=== PATIENT | female | born 1950 | race Caucasian/White ===

== ENCOUNTER 2016-03-11 16:05 | Inpatient (IN) | payer BC ==
[2016-03-13 09:44] LABS: BUN/Creatinine Ratio 24.8 (8-20); Calcium 9.1 mg/dL (8.6-10.3); EGFR Non-African American 55.2 (>60); Magnesium 1.9 mg/dL (1.9-2.7); Potassium 4.8 mmol/L (3.5-5.0)
[2016-03-13] MEDS ORDERED: Acyclovir* 400 MG TAB PO PRN (11:11)
[2016-03-13] MEDS: Dofetilide CAP* 250 MCG PO SCH ×2 (11:49→22:41)
[2016-03-13] MEDS: Saline FLUSH-PERIPHERAL* 10 ML SYRINGE PERIPH SCH ×2 (11:52→22:43)
[2016-03-13] MEDS: Warfarin TAB(*) 2.5 MG PO SCH (17:07)
[2016-03-13] MEDS: POTASSIUM CITRATE 10 MEQ PO SCH (22:42)
[2016-03-14] MEDS: Saline FLUSH-PERIPHERAL* 10 ML SYRINGE PERIPH SCH ×3 (04:50→21:04)
[2016-03-14] MEDS: POTASSIUM CITRATE 10 MEQ PO SCH ×2 (09:34→21:03)
[2016-03-14] MEDS: Dofetilide CAP* 250 MCG PO SCH ×2 (09:34→21:03)
[2016-03-14 10:06] LABS: BUN/Creatinine Ratio 20.9 (8-20); Calcium 9.2 mg/dL (8.6-10.3); EGFR African American 64.3 (>60); Magnesium 1.9 mg/dL (1.9-2.7); Potassium 4.2 mmol/L (3.5-5.0)
[2016-03-14] MEDS ORDERED: Warfarin TAB(*) 5 MG PO SCH (17:00)
[2016-03-15] MEDS: Saline FLUSH-PERIPHERAL* 10 ML SYRINGE PERIPH SCH ×2 (05:55→12:16)
[2016-03-15 06:20] LABS: BUN/Creatinine Ratio 21.9 (8-20); Calcium 8.8 mg/dL (8.6-10.3); EGFR African American 75.3 (>60); EGFR Non-African American 58.5 (>60); Magnesium 1.8 mg/dL (1.9-2.7); Potassium 4.2 mmol/L (3.5-5.0)
--- NOTE | 2016-03-15 08:35 | PN ---
Subjective Date of Service: 03/15/16 - cc: palpitations/afib and dizziness Interval History: No new c/o, persistent palpitations. No recurrent dizziness. Medications Active Medications: Acyclovir (Zovirax Tab*) 400 mg PO DAILY PRN PRN Reason: cold sores Dofetilide (Tikosyn Cap*) 250 mcg PO BID [facility] Last Admin: 03/14/16 21:03 Dose: 250 mcg Potassium Citrate (Urocit-K 10 (Nf)) 20 meq PO BID [facility] Last Admin: 03/14/16 21:03 Dose: 20 meq Sodium Chloride ( Peripheral Saline Flush*) 10 ml PERIPH Q8H [facility] Last Admin: 03/15/16 05:55 Dose: 10 ml Warfarin Sodium (Coumadin Tab(*)) 2.5 mg PO SuMoWeThFrSa@1700 MEMO PRN Reason: Protocol Last Admin: 03/13/16 17:07 Dose: 2.5 mg Warfarin Sodium (Coumadin Tab(*)) 5 mg PO Tu@1700 [facility] PRN Reason: Protocol Last Admin: 03/14/16 16:18 Dose: 5 mg Objective Vital Signs: Temp Pulse Resp BP Pulse Ox 98.7 F 45 16 128/60 99 03/15/16 07:27 03/15/16 07:27 03/15/16 07:27 03/15/16 07:27 03/15/16 07:27 Oxygen Devices in Use Now: None Appearance: fit appearing woman, no acute distress. Eyes: No Scleral Icterus, PERRLA Ears/Nose/Mouth/Throat: Clear Oropharnyx, Mucous Membranes Moist Neck: Trachea Midline, No Thyroid Enlargement, Masses Respiratory: Clear to Auscultation Cardiovascular: RRR - soft SM apex Abdominal: NL Sounds; No Tenderness; No Distention, No Hepatosplenomegaly Extremities: No Edema Skin: No Rash or Ulcers Neurological: Alert and Oriented x 3, NL Muscle Strength and Tone Lines/Tubes/Other Access: Clean, Dry and Intact Peripheral IV Laboratory Results: 03/15/16 05:54 INR (Anticoag Therapy) 2.63 (0.89-1.11) H 03/13/16 09:15 Diagnostic Imaging: Monitor: SR, brief afib, occ PVC's. ECG: QTc 445 +/-. EKG Data: Sinus vahe, PCC's, rare SVT, RBBB. QTc 440's. Assessment/Plan 65 you female with paroxysmal atrial fibrillation and sick sinus syndrome with symptomatic bradycardia on Sotalol. Day 3 Tikosyn loading, doing well. Points of Discussion: Paroxysmal afib: D/c on Tikosyn and usual meds including coumodin. SSS: Pacemaker discussed, but resolution of pauses off sotalol, improved at this time.] Pt to continue to wear EM on discharge.
[2016-03-15] MEDS: POTASSIUM CITRATE 10 MEQ PO SCH (09:04)
[2016-03-15] MEDS: Dofetilide CAP* 250 MCG PO SCH ×2 (09:04→20:34)
[2016-03-15 17:14] VITALS: BP 116/68
[2016-03-15] MEDS: Warfarin TAB(*) 2.5 MG PO SCH (17:51)
--- NOTE | 2016-03-16 18:02 | DS ---
CC: Dr. Leon Iqbal DISCHARGE SUMMARY: DATE OF ADMISSION: DATE OF DISCHARGE: 03/15/16 HISTORY OF PRESENT ILLNESS AND HOSPITAL COURSE: Alicia Salazar is a 65-year-old woman with longstanding paroxysmal atrial fibrillation, breaking through sotalol , and she has had symptomatic bradycardia on low-dose sotalol. The patient stopped her sotalol as an outpatient and was admitted electively, 03/13/16, for Tikosyn loading. PAST MEDICAL HISTORY: Paroxysmal atrial fibrillation; mitral valve prolapse, status post mitral valve repair, 2003; paroxysmal atrial flutter; coagulopathy with factor V Leiden and protein S deficiency; congenital nonrotation of the mid gut; Sjogren's renal tubular acidosis; hypothyroid disease; Raynaud's disease; history of postpericardiotomy syndrome, 2003, post repair; renal stones; normal coronary arteries on cath 2003. PAST SURGICAL HISTORY: Includes mitral valve repair, 2003; lithotripsy; section; adhesion surgery for lysis adhesions, 2001; tonsillectomy and adenoidectomy; hip replacement, 2014; cardiac procedures; atrial flutter ablation, November 2014. HOSPITAL COURSE: The patient was admitted and based on her creatinine clearance , Tikosyn 250 mcg b.i.d. was initiated. She had some brief episodes of atrial fibrillation during the admission, and she had some PVCs but no episodes of polymorphic ventricular tachycardia or sustained atrial dysrhythmias. The patient's ECG on admission showed an ectopic regular atrial rhythm at 43 beats a minute with a right bundle branch block, inverted T waves in V1 through V4, flattened T waves in the lateral leads. On admission, her corrected QT interval was 439 milliseconds. The patient's 12-lead ECG today at 7:22 in the morning after 4 doses of Tikosyn showed regular bradycardia, ectopic atrial rhythm with a short MD interval, possible junctional bradycardia at 44 beats a minute with a right bundle branch block, and a corrected QT interval of 445 milliseconds. Her corrected QT interval on the monitor after her fifth dose of Tikosyn was 414 milliseconds. Shortly after the first dose of Tikosyn, the patient was transiently dizzy and felt spacey. There is no evidence of bradycardia or hypotension. She elected to hydrate herself and this has not recurred with any subsequent doses of Tikosyn and she is ambulating well without symptoms. LABORATORY DATA: INR today 2.18, sodium 139, potassium 4.2, chloride 109, bicarb 25, BUN 21, creatinine 0.96, glucose 90, magnesium 1.8. PHYSICAL EXAMINATION: On the evening of discharge, the patient's blood pressure is 116/68, pulse is ranging in the 40s to 60s with her ectopic atrial rhythm, oxygen saturation 98% on room air, and she is afebrile. She is 5 feet 3 inches, weighs 134 pounds with a BMI of 24. General Appearance: Middle-aged , older woman, appears comfortable in no acute distress, at her usual baseline. Psychologically, calm, cooperative, pleasant. Neurologically, awake, alert, oriented to person, place, and time. Cranial nerves II through XII intact grossly. Normal sensation and motor function in the upper and lower extremities. Normal gait. Skin is warm and dry. No cyanosis or rashes. HEENT : Mucous membranes moist. Neck without increased JVP. Good carotid pulses. No audible bruits. Lungs are clear with good effort. No wheezes, rales, or rhonchi. Coronary: S1, S2. Regular. Trace systolic murmur heard at the apex. Abdomen: Soft and nontender. No epigastric discomfort. Extremities are free of edema and warm. ASSESSMENT AND PLAN: In summary, Alicia Salazar is a 65-year-old woman with paroxysmal atrial fibrillation, flutter, who was breaking through her sotalol. She additionally was having symptomatic bradycardia with pauses up to 4 seconds. She is now off sotalol, loaded with Tikosyn. No evidence of pauses during her hospitalization with improvement in her paroxysmal atrial fibrillation and no evidence of induced ventricular dysrhythmias (history of PVCs) without Tikosyn as well. DISCHARGE MEDICATIONS: She will be discharged on: 1. Tikosyn 250 mcg p.o. b.i.d. 2. Potassium citrate 20 mEq b.i.d. 3. Coumadin. 4. Acyclovir 400 mg a day. She will resume using the event monitor that have been ordered preadmission and she is going to follow up in our office within 1 month. The patient will leave with Tikosyn 10 pills dispensed and a prescription has been e-prescribed to her regular pharmacy. Regarding the patient's sick sinus syndrome, discussions have been had in the office and during admission regarding elective pacemaker implantation, she is understanding and considering this. She knows she has the option of undergoing this here and/or following up with her machine set up operator as well. [id number]/[facility] #: [id number] GERARDO
== END 2016-03-15 20:35 | disposition home or self-care (01) | DRG 201 ==
LOC: MEDTELE 03-13 08:48
PROVIDERS: ADMIT Specialist; ATTEND Specialist
DX: I48.0 Paroxysmal atrial fibrillation (principal); D68.2 Hereditary deficiency of other clotting factors; D68.59 Other primary thrombophilia; I49.5 Sick sinus syndrome; M35.04 Sjogren syndrome with tubulo-interstitial nephropathy; E03.9 Hypothyroidism, unspecified; I73.00 Raynaud's syndrome without gangrene; I48.4 Atypical atrial flutter; I34.1 Nonrheumatic mitral (valve) prolapse; I34.0 Nonrheumatic mitral (valve) insufficiency; Z96.649 Presence of unspecified artificial hip joint; Z79.899 Other long term (current) drug therapy; Z79.01 Long term (current) use of anticoagulants; Z82.49 Family history of ischemic heart disease and other diseases of the circulatory system; Z80.0 Family history of malignant neoplasm of digestive organs; Z80.52 Family history of malignant neoplasm of bladder
CPT/HCPCS: 36415; 80048; 83735; 85610; 93005; A9270-GY

== ENCOUNTER 2016-06-08 08:19 | Observation (INO) | payer BC ==
[2016-06-08] MEDS ORDERED: Diazepam TAB(*) 5 MG ONE (08:58)
[2016-06-08 09:27] LABS: Hematocrit 41 % (35-47); Hemoglobin 13.2 g/dl (12.0-16.0); Mean Corpuscular HGB Conc 32 g/dl (31-36); Mean Corpuscular Hemoglobin 29 pg (27-31); Mean Corpuscular Volume 89 fL (80-97); Mean Platelet Volume 9 um3 (7.4-10.4); Red Blood Count 4.56 10^6/ul (4.0-5.4); Red Cell Distribution Width 14 % (10.5-15); White Blood Count 3.6 10^3/ul (3.5-10.8)
[2016-06-08] MEDS ORDERED: Midazolam* 1 MG/ML 5 ML VIAL (5 MG) ONE ×2 (09:33→10:13)
[2016-06-08] MEDS ORDERED: fentaNYL* 50 MCG/ML 2 ML VIAL (100 MCG VIAL) ONE (09:33)
[2016-06-08] MEDS ORDERED: Lidocaine 1% INJ* 10 MG/ML 30 ML SDV ONE ×2 (09:34→10:19)
[2016-06-08] MEDS ORDERED: Iohexol 300 (CONTRAST) 10 ML SDV ONE ×2 (09:34→10:31)
[2016-06-08 09:43] LABS: Albumin 3.7 g/dL (3.2-5.2); BUN/Creatinine Ratio 22.2 (8-20); Calcium 9.3 mg/dL (8.6-10.3); EGFR African American 65.7 (>60); EGFR Non-African American 51.1 (>60); Globulin 2.7 g/dL (2-4); Potassium 4.6 mmol/L (3.5-5.0); Total Bilirubin 0.5 mg/dL (0.2-1.0); Total Protein 6.4 g/dL (6.4-8.9)
[2016-06-08] MEDS ORDERED: Clindamycin 900 MG IVPREMIX(* 900 MG/50 ML SDV IV ONE (10:00)
[2016-06-08] MEDS ORDERED: DOPAMINE IV ONE (10:44)
[2016-06-08] MEDS ORDERED: IVPREM IV ONE (10:44)
[2016-06-08] MEDS ORDERED: Acetaminophen TAB* 325 MG PO PRN (11:53)
[2016-06-08] MEDS ORDERED: Acyclovir TAB* 400 MG PO PRN (11:53)
--- NOTE | 2016-06-08 14:16 | RAD ---
HISTORY: Atypical atrial flutter, status post pacemaker placement COMPARISONS: October 28, 2011 VIEWS:1: Single frontal portable view of the chest at 12:45 PM FINDINGS: LINES AND TUBES: A dual-lead pacemaker is noted. CARDIOMEDIASTINAL SILHOUETTE: The cardiomediastinal silhouette is normal for portable technique. PLEURA: The costophrenic angles are sharp. No pleural abnormalities are noted. LUNG PARENCHYMA: The lungs are clear. ABDOMEN: The upper abdomen is clear. There is no subphrenic gas. BONES AND SOFT TISSUES: The patient is status post median sternotomy. IMPRESSION: NO ACTIVE CARDIOPULMONARY DISEASE.
[2016-06-08] MEDS: Clindamycin 300 MG IVPREMIX(* 300 MG/50 ML SDV IV SCH ×2 (17:14→22:23)
[2016-06-08] MEDS: oxyCODONE/Acetamin 5/325 MG* TAB PO PRN (21:29)
[2016-06-08] MEDS: POTASSIUM CITRATE 10 MEQ PO SCH (21:30)
[2016-06-08] MEDS: Metoprolol Tartrate TAB* 25 MG PO SCH (22:22)
[2016-06-09] MEDS ORDERED: Acetaminophen TAB* 325 MG PO PRN (01:42)
[2016-06-09] MEDS: oxyCODONE/Acetamin 5/325 MG* TAB PO PRN (03:27)
[2016-06-09] MEDS: Clindamycin 300 MG IVPREMIX(* 300 MG/50 ML SDV IV SCH ×2 (04:27→09:14)
--- NOTE | 2016-06-09 04:52 | OP ---
DATE OF OPERATION: 06/08/16 - ROOM #452 DATE OF : 52 SURGEON: Cecilia Rutledge MD ANESTHESIA: MAC. PRE-OP DIAGNOSIS: Sick sinus syndrome with paroxysmal atrial fibrillation/ flutter. POST-OP DIAGNOSIS: Sick sinus syndrome with paroxysmal atrial fibrillation/ flutter. OPERATIVE PROCEDURE: Pacemaker implantation. ESTIMATED BLOOD LOSS: Less than 5 cc. COMPLICATIONS: None. DESCRIPTION OF PROCEDURE: The indications, risks, and benefits have been discussed in depth with the patient in the office and additional questions were answered in the presence of her this morning. The left subclavian fossa was prepped and draped in the usual sterile fashion. Time-out procedure was called. Following this, the patient received 10 cc of radiopaque dye in the left upper extremity. The left axillary and left subclavian vein was outlined. Following this, the patient received 28 cc of 1% lidocaine and in addition 5 mg of Versed and 50 mcg of fentanyl throughout the procedure. The patient was awake throughout the procedure, additional medication was not provided as her blood pressures were running around 100 systolic with normal saline bolus of 500 cc. Following local anesthesia, using a 10 blade knife, a 2.5-cm incision was made in the left subclavian fossa. This was extended to the pectoralis muscle using Bovie and blunt dissection. Additional lidocaine was infused inferiorly and medially and using blunt dissection, a small pocket was fashioned. Using a modified Seldinger technique, the left subclavian vein was cannulated, it was difficult to find the vein and an additional 10 cc of 1% lidocaine was infused. Following this, access was easily obtained. This procedure was repeated with a second stick and guidewire. Following this, using an introducer technique, the right ventricular lead was guided into the right ventricular apex and actively fixed in place. Pacing and sensing thresholds were inadequate and the lead was repositioned. Following this, using the second guidewire and an introducer in fluoroscopic guidance, the atrial lead was guided in the right atrial appendage. It was actively fixed in place. Pacing and sensing thresholds were found to be good. The leads were then sutured to the pectoralis muscle using 0 silk suture, following careful positioning. The pocket was copiously irrigated. Following this, the leads were attached to the device and the device was placed in the pocket and the incision was closed using 2 layers of resorbable suture, 2-0 followed by 4-0 followed by ced. FINDINGS: The entire system is an MRI compatible system. The device is a [employer] A2DR01, serial number [id number]. The atrial lead is a Medtronic model 5076-45, serial number [id number] with P waves sensed at 1.6 millivolts, atrial lead impedance of 511 ohms and atrial pacing threshold of 0.7 volts at 0.5 milliseconds. The ventricular lead is a Medtronic model 5076-52, serial number [id number] with R waves sensed at 5.8 millivolts, a ventricular lead impedance of 658 ohms, and a ventricular pacing threshold of 1 volt at 0.5 milliseconds. The patient developed SVT intermittently during the procedure. At the time of the transfer to the floor, she was in atrial paced rhythm with [place] QRS. Blood pressures were soft during the procedure, and she had transient scapular pain that responded to repositioning. CC: Dr. Leon Iqbal* [id number]/[facility] #: [id number] GERARDO
[2016-06-09 05:16] LABS: Albumin 3.2 g/dL (3.2-5.2); BUN/Creatinine Ratio 21.5 (8-20); Calcium 8.6 mg/dL (8.6-10.3); EGFR African American 66.4 (>60); EGFR Non-African American 51.6 (>60); Globulin 2.3 g/dL (2-4); Magnesium 1.9 mg/dL (1.9-2.7); Potassium 4.5 mmol/L (3.5-5.0); Total Bilirubin 0.4 mg/dL (0.2-1.0); Total Protein 5.5 g/dL (6.4-8.9)
[2016-06-09 06:47] LABS: Hematocrit 36 % (35-47); Hemoglobin 11.8 g/dl (12.0-16.0); Mean Corpuscular HGB Conc 33 g/dl (31-36); Mean Corpuscular Hemoglobin 29 pg (27-31); Mean Corpuscular Volume 89 fL (80-97); Mean Platelet Volume 9 um3 (7.4-10.4); Red Blood Count 4.04 10^6/ul (4.0-5.4); Red Cell Distribution Width 14 % (10.5-15); White Blood Count 3.8 10^3/ul (3.5-10.8)
[2016-06-09 08:13] VITALS: BP 108/69
[2016-06-09 08:31] LABS: BUN/Creatinine Ratio 22.9 (8-20); Calcium 8.5 mg/dL (8.6-10.3); EGFR African American 67.9 (>60); EGFR Non-African American 52.8 (>60); Potassium 4.7 mmol/L (3.5-5.0)
--- NOTE | 2016-06-09 08:32 | RAD ---
INDICATION: Device implant COMPARISON: June 08, 2016 TECHNIQUE: PA and lateral dual-energy views were obtained. FINDINGS: Bones/Soft Tissues: There are no acute bony findings. There is sternotomy. There is recent left-sided cardiac pacemaker placement. The generator and wires appear intact. Cardiomediastinal: The cardiomediastinal silhouette is normal. There is no vascular congestion. Lungs: There are no infiltrates. There is minimal left basilar airspace disease, likely atelectasis. There is no pneumothorax. Pleura: There are no pleural effusions. Other: None IMPRESSION: LEFT SIDED CARDIAC PACEMAKER. LUNGS CLEAR.
[2016-06-09] MEDS: Metoprolol Tartrate TAB* 25 MG PO SCH (09:14)
[2016-06-09] MEDS: POTASSIUM CITRATE 10 MEQ PO SCH (09:15)
[2016-06-09 11:48] LABS: Erythrocyte Sed Rate 15 mm/Hr (0-30)
[2016-06-09] MEDS ORDERED: Warfarin TAB(*) 2.5 MG PO SCH (17:00)
--- NOTE | 2016-06-12 09:41 | DS ---
CC: Dr. Iqbal DISCHARGE SUMMARY: DATE OF ADMISSION: 06/08/16 DATE OF DISCHARGE: 06/09/16 HISTORY OF PRESENT ILLNESS AND HOSPITAL COURSE: Alicia Salazar is a 65-year-old woman with a history of mitral valve repair distantly, history of paroxysmal atrial fibrillation, and sick sinus syndrom e. Due to inability to adequately control her AFib/flutter due to symptomatic bradycardia, the azeem ent was brought in for elective dual-chamber pacemaker implantation. She underwent implantation of an MRI compatible dual-chamber Medtronic device, June 08. She had some pleuritic chest pain following the procedure. There was no evidence of pneumothorax or any oth er abnormalities on chest x-ray, and she said this was similar to sensation she had back with her mi tral valve surgery and she thinks it is musculoskeletal. On the day of discharge, the patient was feeling better. She very much wanted to go home. She derrick ed orthopnea, PND, or dyspnea. On the monitor overnight, she had had some transient tachycardia. The patient has a past medical history of: 1. Mitral valve prolapse, status post mitral valve repair, 2013. 2. A history of paroxysmal atrial fibrillation. 3. Paroxysmal atrial flutter and she underwent flutter ablation, 2014 (Dr. Velazquez). 4. History of coagulopathy, factor V Leiden and protein S. 5. Congenital malrotation of the mid gut. 6. Sjogren syndrome. 7. Renal tubular acidosis. 8. Hypothyroid disease. 9. Raynaud's. 10. Post-pericardiectomy syndrome following mitral valve repair. PAST SURGICAL HISTORY: 1. Mitral valve repair, 2013, #32 Cara ring, [facility]. 2. Lithotripsy x2. 3. section. 4. Lysis of adhesions, 2001. 5. Tonsillectomy. 6. Adenoidectomy. 7. Hip replacement, right, 2015. EXAM ON THE DAY OF DISCHARGE: She is 5 feet 4 inches, weighs 150 pounds with a BMI of 25.7, blood p ressure 108/69, pulse was 60 and regular, atrial paced, temperature 98.3, and respiratory rate was 1 6. General Appearance: Fit-appearing older woman in no acute distress. Psychologically, calm, telehealth coordinator perative, pleasant. Neurologically, awake, alert, and oriented to person, place, and time. Cranial nerves II through XII intact. Grossly normal sensory and motor function in the upper and lower extr emities. Normal gait. Skin: Warm and dry. No cyanosis or rashes. Incision in the left subclavia n fossa had some minimal dotting of blood, but no hematoma or ecchymosis and no evidence of infectio n. HEENT: Pupils were equal and round. Mucous membranes moist. Neck: Without increased JVP. Br eath sounds clear with good effort in all lung [place], symmetrical. Coronary: S1, S2 regular. No rubs. Midline sternotomy scar well healed and old. Abdomen: Soft and nontender. No hepatosplenom egaly. Lower extremities are free of edema. LABS ON ADMISSION: White count 3.6, hemoglobin 13.2, platelets 124. On the day of discharge, white count 3.8, hemoglobin 11.8, hematocrit 36, platelets 106, and sed rate 15. INR 0.98. Sodium 139, potassium 4.7, chloride 108, BUN 24, creatinine 1.05, calcium 8.5, magnesium 1.9. Chest x-ray on June 08 and June 09 showed good lead placement, no pneumothorax. Pacemaker int errogation done, 06/09/16, confirmed she has a Medtronic MRI compatible device. Overnight, she atri ally paced 95% of the time, ventricularly paced 0.3% of the time. Atrial lead impedance 361 ohms wi th P waves sensed at 1.5 millivolts and an atrial pacing threshold of 0.5 volts at 0.4 milliseconds. Ventricular lead impedance was 532 ohms with R wave sensed at 7 millivolts and a ventricular pacin g threshold of 0.5 volts at 0.4 milliseconds. She had had no episodes of sustained atrial fibrillati on or ventricular tachycardia. Programming at discharge was AAIR/DDDR with mode switch detection at 150 beats a minute. In summary, Alicia Salazar is a 65-year-old woman with a history of tachy-vahe syndrome. She was in a junctional or ectopic atrial rhythm prior to pacemaker implantation. She was discharged postop d ay #1 with good function of her pacemaker, good lead placement, and no evidence of pneumothorax, but with some mild pleuritic discomfort. DISCHARGE MEDICATIONS: Her medications at discharge will include: 1. Clindamycin 300 mg t.i.d. for 10 tablets. 2. Tylenol p.r.n. 3. Zovirax 400 mg a day. 4. Potassium 40 mEq a day. 5. On Sunday, once her Tikosyn has worn off, she will start sotalol 80 mg b.i.d. and her Coumadin w ill be resumed at her previous dose. FOLLOWUP: She will follow up in our office next week for a wound check and EKG to evaluate her QT i ntervals on the sotalol. [id number]/[facility] #: [id number]
[2016-06-13] MEDS ORDERED: Warfarin TAB(*) 5 MG PO SCH (17:00)
== END 2016-06-09 10:00 | disposition home or self-care (01) ==
LOC: CHICATH 08:19 → MEDTELE 12:08 → INTOOBSV 12:08
PROVIDERS: ADMIT Specialist; ATTEND Specialist
DX: I49.2 Junctional premature depolarization (principal); I48.0 Paroxysmal atrial fibrillation; D68.51 Activated protein C resistance; Q43.3 Congenital malformations of intestinal fixation; M35.00 Sjogren syndrome, unspecified; E03.9 Hypothyroidism, unspecified; N25.89 Other disorders resulting from impaired renal tubular function; I73.00 Raynaud's syndrome without gangrene; I45.10 Unspecified right bundle-branch block; Z79.01 Long term (current) use of anticoagulants; Z79.899 Other long term (current) drug therapy
CPT/HCPCS: 33208; 36415; 71010; 71020; 80048; 80053; 83735; 85025; 85027; 85610; 85652; 93005; A9270-GY; C1785; C1898; G0378; J1265; J2001; J2250; J3010; Q9967

== ENCOUNTER 2016-10-18 11:11 | Emergency (ER) | payer MEDICARE, BC ==
[2016-10-18] MEDS ORDERED: oxyCODONE/Acetamin 5/325 MG* TAB PO ONE (11:30)
[2016-10-18 12:21] LABS: Hematocrit 40 % (35-47); Hemoglobin 12.9 g/dl (12.0-16.0); Mean Corpuscular HGB Conc 32 g/dl (31-36); Mean Corpuscular Hemoglobin 30 pg (27-31); Mean Corpuscular Volume 91 fL (80-97); Mean Platelet Volume 9 um3 (7.4-10.4); Red Blood Count 4.35 10^6/ul (4.0-5.4); Red Cell Distribution Width 15 % (10.5-15); White Blood Count 5.3 10^3/ul (3.5-10.8)
--- NOTE | 2016-10-18 12:33 | ED ---
Back Pain - HPI Summary HPI Summary: 66F presents with left sided back/rib pain pain after fall today. She states she slipped on the table cloth and fell onto her left midback and landed on a corner. She has abrasion to her back. She is on Coumadin last inr was 1.5 so she took double the warfarin but did not have INR checked due to being out of town. She admits to SOB due to pain. She denies any lightheadedness or tachycardia. She has not taken anything for her pain. She has history of pacemaker. She is able to ambulate. She denies any head injury, LOC, or neck pain. - History of Current Complaint Chief Complaint: EDBackInjuryPain Stated Complaint: FALL/BACK INJURY,SOB-PT ON COUMADIN Time Seen by Provider: 10/18/16 11:24 Hx Last Menstrual Period: tubal ligation 1982 Pain Intensity: 7 - Allergies/Home Medications Allergies/Adverse Reactions: Allergies Allergy/AdvReac Type Severity Reaction Status Date / Time Bupropion [From Wellbutrin] Allergy Unknown LARGE WELTS Verified 05/04/16 10:29 Amiodarone Allergy HYPOTHYROID Verified 05/04/16 10:29 ISM Cephalosporins Allergy LARGE WELTS Verified 05/04/16 10:29 Sulfa Drugs Allergy Rash Verified 05/04/16 10:29 NO LIVE VACCINE Allergy HAS Uncoded 05/04/16 10:29 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 PMH/Surg Hx/FS Hx/Imm Hx Endocrine/Hematology History: Reports: Other Endocrine/Hematological Disorders - Factor V Leiden Mutation Denies: Hx Diabetes, Hx Systemic Lupus Erythematosus - SJOGRENS SYN, Hx Thyroid Disease Cardiovascular History: Reports: Hx Pacemaker/ICD - 3, Hx Valvular Heart Disease - mitral valve Denies: Hx Congestive Heart Failure, Hx Hypertension Respiratory History: Reports: Hx Sleep Apnea - r/o evaluation started 11/2012, Other Respiratory Problems/Disorders - SICARDOSIS Denies: Hx Asthma, Hx Chronic Obstructive Pulmonary Disease (COPD) GI History: Denies: Hx Ulcer History: Reports: Hx Kidney Stones, Hx Renal Disease - RENAL TUBULAR ACIDOSIS Denies: Hx Dialysis Musculoskeletal History: Reports: Other Musculoskeletal History - Sjogren's syndrome Denies: Hx Rheumatoid Arthritis Sensory History: Reports: Hx Contacts or Glasses Denies: Hx Hearing Aid Opthamlomology History: Reports: Hx Contacts or Glasses Neurological History: Denies: Hx Headaches Psychiatric History: Denies: Hx Panic Disorder - Cancer History Hx Chemotherapy: No Hx Radiation Therapy: No - Surgical History Surgery Procedure, Year, and Place: URETERAL/MINA surgery, [place] [facility] [place] PER PT. Exploratory lap, 2001, [facility] [place]. Mitral valve repair, 2003, [facility]WITH [facility] MRISAFETY FOR 1.5 ONLY. Right hip replacement, 2014, [facility] [place]. CARDIAC ABLASION 2016. C SECTIONS. LITHROTRIPSY Hx Anesthesia Reactions: No Infectious Disease History: No Infectious Disease History: Denies: Hx Hepatitis, Hx Human Immunodeficiency Virus (HIV), Traveled Outside the [place] in Last 30 Days - Family History Known Family History: Positive: Hypertension - Social History Alcohol Use: None Substance Use Type: Reports: None Smoking Status (MU): Never Smoked Tobacco Review of Systems Negative: Fever Positive: Other - rib pain Positive: Shortness Of Breath Positive: Myalgia - back pain All Other Systems Reviewed And Are Negative: Yes Physical Exam Triage Information Reviewed: Yes Vital Signs On Initial Exam: Initial Vitals Temp Pulse Resp BP Pulse Ox 98 F 65 20 118/99 100 10/18/16 11:11 10/18/16 11:11 10/18/16 11:11 10/18/16 11:11 10/18/16 11:11 Vital Signs Reviewed: Yes Appearance: Positive: Well-Appearing Skin: Positive: Warm, Dry, Other - abrasion on left side of posterior lower ribs Head/Face: Positive: Normal Head/Face Inspection Eyes: Positive: Normal, Conjunctiva Clear Respiratory/Lung Sounds: Positive: Clear to Auscultation, Breath Sounds Present Cardiovascular: Positive: Normal, RRR Musculoskeletal: Positive: Strength/ROM Intact - no midline tenderness, Other - tender over ribs 10-12 on posterior aspect Psychiatric: Positive: Normal Diagnostics - Vital Signs Vital Signs Temp Pulse Resp BP Pulse Ox 10/18/16 11:47 16 10/18/16 11:24 98.6 F 60 16 105/58 99 10/18/16 11:11 98 F 65 20 118/99 100 - Laboratory Lab Results: Lab Results 10/18/16 10/18/16 Range/Units 12:00 12:00 WBC 5.3 (3.5-10.8) 10^3/ul RBC 4.35 (4.0-5.4) 10^6/ul Hgb 12.9 (12.0-16.0) g/dl Hct 40 (35-47) % MCV 91 (80-97) fL MCH 30 (27-31) pg MCHC 32 (31-36) g/dl RDW 15 (10.5-15) % Plt Count 150 (150-450) 10^3/ul MPV 9 (7.4-10.4) um3 Neut % (Auto) 80.0 (38-83) % Lymph % (Auto) 10.5 L (25-47) % [place] % (Auto) 5.8 (1-9) % Eos % (Auto) 3.1 (0-6) % Baso % (Auto) 0.6 (0-2) % Absolute Neuts (auto) 4.3 (1.5-7.7) 10^3/ul Absolute Lymphs (auto) 0.6 L (1.0-4.8) 10^3/ul Absolute Monos (auto) 0.3 (0-0.8) 10^3/ul Absolute Eos (auto) 0.2 (0-0.6) 10^3/ul Absolute Basos (auto) 0 (0-0.2) 10^3/ul Absolute Nucleated RBC 0 10^3/ul Nucleated RBC % 0 INR (Anticoag Therapy) 2.99 H (0.89-1.11) APTT 50.0 H (26.0-36.3) seconds Result Diagrams: 10/18/16 12:00 Lab Statement: Any lab studies that have been ordered have been reviewed, and results considered in the medical decision making process. - CT chest CT Interpretation: Positive (See Comments) - IMPRESSION: 1. Nondisplaced LEFT 11th rib fracture. Associated small LEFT joint effusion and mild atelectasis. Negative for pneumothorax. 2. LEFT posterior back/flank subcutaneous tissue plane infiltrative edema or hematoma without significant loculated hematoma. 3. Incidental bilateral staghorn renal calculi. CT Interpretation Completed By: Radiologist lumbar CT Interpretation: Positive (See Comments) - IMPRESSION: DEGENERATIVE DISC DISEASE AT MULTIPLE LEVELS. NO FRACTURE IS NOTED. THERE IS PARTIAL LUMBARIZATION OF THE S1 VERTEBRA. AT L4-L5 MODERATE SIZE BROAD-BASED PROTRUSION FLATTENS THE THECAL SAC. BILATERAL STAGHORN CALCULI ARE NOTED IN BOTH KIDNEYS. CT Interpretation Completed By: Radiologist Back Pain Course/Dx - Course Course Of Treatment: 66F presents with left sided back/rib pain pain after fall today. She states she slipped on the table cloth and fell onto her left midback and landed on a corner. She has abrasion to her back. She is on Coumadin last inr was 1.5 so she took double the warfarin but did not have INR checked due to being out of town. She admits to SOB due to pain. She denies any lightheadedness or tachycardia. She has not taken anything for her pain. She has history of pacemaker. She is able to ambulate. She denies any head injury, LOC, or neck pain. abrasion noted to left side of back. tender over abrasion. lungs CTA. inr 2.9. w/h normal. CT shows nondisplaced 11 rib fracture and swelling. explained results and will order for pain medication. told to do deep breathing to prevent pneumonia. patient understands and agrees with plan. - Diagnoses Differential Diagnosis/HQI/PQRI: Positive: Fracture, Other - contusion, pneumothorax Provider Diagnoses: Rib fracture Discharge - Discharge Plan Condition: Good Disposition: HOME Prescriptions: oxyCODONE/Acetamin 5/325 MG* [Percocet 5/325 TAB*] 1 tab PO Q6H PRN #20 tab MDD 4 PRN Reason: Pain Patient Education Materials: Rib Fracture (ED) Referrals: Nemo Cruz MD [Primary Care Provider] - Additional Instructions: Take deep breath throughout the day Place ice on area Take Tylenol for pain every 6 hours, use narcotic for break through pain Follow up with primary care physician within 5 days Return to ED if develop new productive cough, fever, or any new or worsening symptoms
--- NOTE | 2016-10-18 12:43 | RAD ---
INDICATION: Shortness of breath and low back pain post fall. COMPARISON: June 01, 2016 chest radiograph. TECHNIQUE: Multidetector CT images were obtained from the lung apices to the upper abdomen. Evaluation of the viscera is limited without IV contrast. REPORT: Trace LEFT dependent pleural effusion and minimal associated atelectasis. Negative for pneumothorax. Negative for mediastinal hematoma or pneumomediastinum. Median sternotomy wires and RIGHT atrial and RIGHT ventricular level pacemaker leads. Cardiomegaly. Negative for pericardial effusion. Normal diameter thoracic aorta. Negative for thoracic lymphadenopathy. Images through the upper abdomen are remarkable for cholelithiasis with a 2.1 cm weakly calcified stone without additional CT abnormality of the gallbladder is partial bilateral staghorn renal calculi. Nondisplaced fracture of the LEFT 11th rib noted. Chronic deformity of the LEFT 12th rib noted posterior lateral. Negative for thoracic spine fracture or malalignment. Multilevel thoracic degenerative spondylosis. LEFT posterior back/flank subcutaneous tissue plane infiltrative edema or hematoma without significant loculated hematoma. IMPRESSION: 1. Nondisplaced LEFT 11th rib fracture. Associated small LEFT joint effusion and mild atelectasis. Negative for pneumothorax. 2. LEFT posterior back/flank subcutaneous tissue plane infiltrative edema or hematoma without significant loculated hematoma. 3. Incidental bilateral staghorn renal calculi.
--- NOTE | 2016-10-18 12:51 | RAD ---
Indication: Back pain after fall. CT of the lumbar spine was obtained in the axial plane. Sagittal and coronal reconstructed images were obtained. The vertebral bodies appear normal in height. No compression fracture is noted. There is a transitional vertebra probably representing partial lumbarization of S1. At L5-S1 broad-based protrusion is noted. No central or foraminal stenosis is noted. Mild facet arthropathy is noted. At L4-L5 there is disc space narrowing with vacuum disc phenomenon. Broad-based protrusion flattens the thecal sac. No foraminal stenosis is noted. At L3-L4 broad-based protrusion flattens the thecal sac. Mild facet arthropathy is noted. No central or foraminal stenosis is noted. At L2-L3 broad-based protrusion flattens the thecal sac. Focal left posterior lateral disc protrusion slightly narrows the left foramen. At L1-L2 degenerative disc disease is noted. No fractures noted. Staghorn calculi are noted in both kidneys. IMPRESSION: DEGENERATIVE DISC DISEASE AT MULTIPLE LEVELS. NO FRACTURE IS NOTED. THERE IS PARTIAL LUMBARIZATION OF THE S1 VERTEBRA. AT L4-L5 MODERATE SIZE BROAD-BASED PROTRUSION FLATTENS THE THECAL SAC. BILATERAL STAGHORN CALCULI ARE NOTED IN BOTH KIDNEYS.
[2016-10-18 13:28] VITALS: BP 116/58
== END 2016-10-18 13:29 | disposition home or self-care (01) ==
LOC: ED 11:11
DX: S22.32XA Fracture of one rib, left side, initial encounter for closed fracture (principal); W19.XXXA Unspecified fall, initial encounter; Y93.9 Activity, unspecified; Y92.9 Unspecified place or not applicable
CPT/HCPCS: 36415; 71250; 72131; 85025; 85610; 85730; 99283; A9270-GY

== ENCOUNTER 2017-07-01 10:05 | Emergency (ER) | payer MEDICARE, OTHER ==
--- OUTSIDE RECORDS SUMMARY | 2017-07-01 10:12 | XMS REPORT ---
:1950 External Reference #:[id number] Author Organization [employer] Address [address] [place] [address] Phone [phone] Care Team Providers Name Role Phone Nemo Cruz MD Primary Care Physician Unavailable Payers Type Date Identification Numbers Payment Provider Subscriber Medicare Primary Policy Number: [id number] Medicare - NGS Alicia Salazar PayID: [id number] [address] [place] [address] Commercial Policy Number: [id number] [employer] Alicai Salazar PayID: [id number] [address] [place] [address] Problems Date Description Provider Status Onset: Sjogren's syndrome Active Onset: Renal tubular acidosis Active Onset: Arthritis Active Onset: Raynaud's disease Active Onset: Atrial arrhythmia Active Onset: Factor V Leiden mutation Active Onset: Mitral valve prolapse Active Onset: 09/01/2015 Nuclear senile cataract Rosangela Alexander O.D. Active Onset: 09/01/2015 Tear film insufficiency Rosangela Alexander O.D. 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 ETOH Use Occasionally consumes alcohol Recreational Drug Use Denies Drug Use Smoking Patient has never smoked Daily Caffeine Does Not Consume Caffeine Allergies, Adverse Reactions, Alerts Date Description Reaction Status Severity Comments 08/23/2015 Sulfa Antibiotics active 08/23/2015 Wellbutrin active 08/23/2015 Cephalosporins active 12/13/2016 Amiodarone hypothyroidism active Medications Medication Date Status Form Strength Qnty SIG Indications Ordering Provider Warfarin Active Tablets 2.5mg Take One Unknown Sodium 000 Tablet By Mouth Every Day Acyclovir Active Tablets 400mg as Unknown 000 needed for cold sores Sotalol HCL Active Tablets 80mg Unknown 000 Potassium Active Tablets ER 10Meq Unknown Citrate ER 000 (1080 mg) Blink Tears Active Solution 0.25% as Rosangela Kent. Lubricating 000 needed [place], Eye Drops O.D. Restasis Hx Emulsion 0.05% [address] 1 H04.123 Rosangela Hernandez 017 - ts Drop In [place], Both O.D. 018 Eyes Two Times A Day Artificial Hx Solution 0.2-0.2-1% as Rosangela Hernandez Tears 000 - needed [place], O.D. 017 Results Description No Information Procedures Date CPT Code Description Status 09/01/2016 69079 Determination Of Refractive State Completed 09/01/2016 32599 Est Patient Comprehensive Exam Completed 09/01/2015 76311 Determination Of Refractive State Completed 09/01/2015 62594 Est Patient Comprehensive Exam Completed 08/25/2013 94849 Scanning Computerized Opthalmic Diagnostic Posterior Completed Seg Retina 08/25/2013 89563 Determination Of Refractive State Completed 08/25/2013 13562 Est Patient Comprehensive Exam Completed 02/25/2013 33231 Visual Field Exam Extended Completed 01/02/2013 201 Refit - No Change In Fit Completed 01/02/2013 76458 Est Patient Comprehensive Exam Completed 07/21/2011 40692 Determination Of Refractive State Completed 07/21/2011 04927 Est Patient Comprehensive Exam Completed 07/21/2011 201 Refit - No Change In Fit Completed 08/18/2009 27612 Determination Of Refractive State Completed 08/18/2009 89159 Est Patient Comprehensive Exam Completed 08/18/2009 201 Refit - No Change In Fit Completed 12/13/2007 05257 Determination Of Refractive State Completed 12/13/2007 83365 New Patient Comprehensive Exam Completed 12/13/2007 203 Refit Soft Toric/Monovision Completed Encounters Type Date Location Provider CPT E/M Dx Office Visit 12/13/2016 Jose Hoover MD, Rosangela Alexander, [address]46 H04.123 2:00p pc O.D. Office Visit 08/15/2011 Jose Hoover MD, Hellenbonilla Odonnell, [address] 918.1 3:45p pc O.D. Plan of Care 06/13/2017 - Rosangela Alexander O.D.H04.123 Dry eye syndrome of bilateral lacrimal glandsComments:use 1000 mg's of fish oil/ omega's dailyuse artificial tears both eyes every 2 hours as neededuse a hot compress for 5-10 minutes 1 x dayFollow up:6 Month Follow Up /RCL You can expect to have your eyes dilated at your next visit. If Dr. Alexanderorders any additional testing, it may require extra time. We recommend that you bring sunglasses, asdilation drops often make you light sensitive until they wear off. We always recommend you bring someone to drive you home if you are uncomfortable driving with your eyes dilated. If you have any questions before your next visit, feel free to call our office at .H25.13 Age-related nuclear cataract, bilateralComments:You have been diagnosed with cataracts. If you are happy with your vision as it is now, then we willsee you at your next scheduled appointment. If you feel like your vision is getting worse before your scheduled appointment, please call Vicki or Jennifer at [phone].
--- OUTSIDE RECORDS SUMMARY | 2017-07-01 10:13 | XMS REPORT ---
:1950 External Reference #:[id number] Author Organization [employer] Address [address] [place] [address] Phone [phone] Care Team Providers Name Role Phone Nemo Cruz MD Primary Care Physician Unavailable Payers Type Date Identification Numbers Payment Provider Subscriber Medicare Primary Policy Number: [id number] Medicare - NGS Alicia Salazar PayID: [id number] [address] [place] [address] Commercial Policy Number: [id number] [employer] Alicia Salazar PayID: [id number] [address] [place] [address] Problems Date Description Provider Status Onset: Sjogren's [...] Procedures Date CPT Code Description Status 09/01/2016 11333 Determination Of Refractive State Completed 09/01/2016 45929 Est Patient Comprehensive Exam Completed 09/01/2015 29829 Determination Of Refractive State Completed 09/01/2015 60827 Est Patient Comprehensive Exam Completed 08/25/2013 05909 Scanning Computerized Opthalmic Diagnostic Posterior Completed Seg Retina 08/25/2013 50431 Determination Of Refractive State Completed 08/25/2013 79530 Est Patient Comprehensive Exam Completed 02/25/2013 32999 Visual Field Exam Extended Completed 01/02/2013 201 Refit - No Change In Fit Completed 01/02/2013 69258 Est Patient Comprehensive Exam Completed 07/21/2011 80189 Determination Of Refractive State Completed 07/21/2011 89196 Est Patient Comprehensive Exam Completed 07/21/2011 201 Refit - No Change In Fit Completed 08/18/2009 64025 Determination Of Refractive State Completed 08/18/2009 69247 Est Patient Comprehensive Exam Completed 08/18/2009 201 Refit - No Change In Fit Completed 12/13/2007 76760 Determination Of Refractive State Completed 12/13/2007 52881 New Patient Comprehensive Exam Completed 12/13/2007 203 Refit Soft Toric/Monovision Completed Encounters Type Date Location Provider CPT E/M Dx Office Visit 12/13/2016 Jose Hoover MD, Rosangela Alexander, 80846 H04.123 2:00p pc O.D. Office Visit 08/15/2011 Jose Hoover MD, Hellen Odonnell, [address]88[address] 918.1 3:45p pc O.D. Plan of Care 06/13/2017 - Rosangela Alexander O.D.H04.123 Dry eye syndrome of bilateral lacrimal glandsComments:GEL DROPS AT BEDTIMECONTINUE RESTASIS 2XDAY
--- NOTE | 2017-07-01 10:18 | UC ---
Lower Extremity/Ankle HPI - HPI Summary HPI Summary: Twisted R ankle while going down stairs just [employer]. Denies prior injury or surgery on that ankle. Pt has sjogren's syndrome, no significant joint involvement. Unable to bear weight. - History of Current Complaint Stated Complaint: ANKLE INJURY Time Seen by Provider: 07/01/17 10:11 Hx Obtained From: Patient Hx Last Menstrual Period: tubal ligation 1982 ?: No Onset/Duration: Sudden Onset Severity Initially: Severe Severity Currently: Moderate Aggravating Factor(s): Standing, Ambulation Alleviating Factor(s): Rest, Elevation Able to Bear Weight: No - Allergies/Home Medications Allergies/Adverse Reactions: Allergies Allergy/AdvReac Type Severity Reaction Status Date / Time amiodarone Allergy See Comment Verified 07/01/17 10:25 bupropion Allergy Hives Verified 07/01/17 10:25 Cephalosporins Allergy See Comment Verified 07/01/17 10:25 Sulfa (Sulfonamide Allergy Rash Verified 07/01/17 10:31 Antibiotics) live vaccine Allergy See Comment Uncoded 07/01/17 10:25 PMH/Surg Hx/FS Hx/Imm Hx - Additional Past Medical History Additional PMH: Sjogren's syndrome Cardiovascular History: Hypertension, Atrial Fibrillation - Surgical History Surgical History: Yes Surgery Procedure, Year, and Place: URETERAL/MINA surgery, 1980, [facility] [place] LEFT RIB REMOVED PER PT. Exploratory lap, 2001, [facility] [place]. Mitral valve repair, 2003, [facility]-WITH LUIS ANGEL RING MRISAFETY FOR 1.5 ONLY. Right hip replacement, 2014, [facility] [place]. CARDIAC ABLASION 2016. C SECTIONS. LITHROTRIPSY - Family History Known Family History: Positive: Hypertension - Social History Alcohol Use: None Substance Use Type: None Smoking Status (MU): Never Smoked Tobacco - Immunization History Most Recent Influenza Vaccination: fall 2015 Most Recent Tetanus Shot: 2014 Most Recent Pneumonia Vaccination: never Review of Systems Constitutional: Negative Skin: Negative Eyes: Negative ENT: Negative Respiratory: Negative Cardiovascular: Negative Gastrointestinal: Negative Genitourinary: Negative Motor: Negative Neurovascular: Negative Musculoskeletal: Arthralgia, Decreased ROM, Edema Neurological: Negative Psychological: Negative Is Patient Immunocompromised?: No All Other Systems Reviewed And Are Negative: Yes Physical Exam Triage Information Reviewed: Yes Appearance: Well-Appearing, Well-Nourished, Pain Distress - marked with movement Vital Signs Reviewed: Yes Eye Exam: Normal Eyes: Positive: Conjunctiva Clear ENT Exam: Normal ENT: Positive: Normal ENT inspection, Hearing grossly normal, Pharynx normal, TMs normal Neck exam: Normal Neck: Positive: Supple, Nontender, No Lymphadenopathy Respiratory Exam: Normal Respiratory: Positive: Chest non-tender, Lungs clear, Normal breath sounds, No respiratory distress, No accessory muscle use Cardiovascular Exam: Normal Cardiovascular: Positive: RRR, No Murmur Musculoskeletal Exam: Other - local swelling, bony tenderness at R distal fibula Musculoskeletal: Positive: ROM Limited @ - R ankle Neurological Exam: Normal Neurological: Positive: Alert, Muscle Tone Normal Psychological Exam: Normal Skin Exam: Normal Diagnostics - Radiology No standard instances Xray Interpretation: Positive (See Comments) - R distal fibular fracture Radiology Interpretation Completed By: Radiologist Lower Extremity Course/Dx - Differential Dx/Diagnosis Provider Diagnoses: L distal fibular fracture closed, spiral, minimally displaced Discharge - Sign-Out/Discharge Documenting (check all that apply): Discharge - Discharge Plan Condition: Stable Disposition: HOME Prescriptions: Oxycodone HCl/Acetaminophen [Endocet 5-325 Tablet] 1 tab PO Q4H #25 tab MDD 6 Patient Education Materials: Ankle Fracture (ED) Referrals: Nemo Cruz MD [Primary Care Provider] - Tab Iraheta MD [Medical Doctor] - 4 Days Additional Instructions: Keep the ankle elevated. Do not bear weight on the limb at all until you are cleared by the orthopedist. - Billing Disposition and Condition Condition: STABLE Disposition: HOME
[2017-07-01] MEDS ORDERED: HYDROcodone/ACETAMIN 5-325 MG* 1 TAB PO ONE (10:20)
[2017-07-01 10:41] VITALS: BP 116/59
--- NOTE | 2017-07-01 10:41 | RAD ---
Indication: Right ankle injury. 3 views of the right ankle demonstrates a spiral fracture through the distal fibula. No significant displacement is noted although the fracture appears to be mildly comminuted. Ankle mortise is grossly intact. IMPRESSION: Spiral fracture of the distal fibula which is mildly comminuted.
== END 2017-07-01 11:15 | disposition home or self-care (01) ==
LOC: UCEAST 10:05
DX: S82.831A Other fracture of upper and lower end of right fibula, initial encounter for closed fracture (principal); X50.1XXA Overexertion from prolonged static or awkward postures, initial encounter; Y93.89 Activity, other specified; Y92.9 Unspecified place or not applicable; M35.00 Sjogren syndrome, unspecified; I10 Essential (primary) hypertension; I48.91 Unspecified atrial fibrillation; Z79.01 Long term (current) use of anticoagulants; Z88.1 Allergy status to other antibiotic agents; Z88.2 Allergy status to sulfonamides; Z88.7 Allergy status to serum and vaccine; Z88.8 Allergy status to other drugs, medicaments and biological substances
CPT/HCPCS: 99213; G0463

== ENCOUNTER 2018-09-07 15:27 | Observation (INO) | payer MEDICARE, OTHER ==
--- NOTE | 2018-09-07 16:01 | ED ---
Lower Extremity - HPI Summary HPI Summary: This patient is a 68 year old female presenting to [facility] with a chief complaint of bilateral hip pain, left greater than right since 3 days ago. She reports the pain radiates to her buttocks. The patient reports a Hx of Sjogrens syndrome. She states it is atraumatic and thinks it is sciatica, which she had no Hx of. She rates her pain 10/10 in severity. - History of Current Complaint Chief Complaint: EDHipPelvisInjury Stated Complaint: IM PRETTY SURE ITS MY BACK PER PT Time Seen by Provider: 09/07/18 15:57 Hx Obtained From: Patient Hx Last Menstrual Period: tubal ligation 1982 Onset of Pain: Days Onset/Duration: Days Pain Intensity: 10 Pain Scale Used: 0-10 Numeric Timing: Constant - Allergies/Home Medications Allergies/Adverse Reactions: Allergies Allergy/AdvReac Type Severity Reaction Status Date / Time amiodarone Allergy See Comment Verified 10/26/17 11:29 bupropion Allergy Hives Verified 10/26/17 11:29 Cephalosporins Allergy See Comment Verified 10/26/17 11:29 Sulfa (Sulfonamide Allergy Rash Verified 10/26/17 11:29 Antibiotics) live vaccine Allergy See Comment Uncoded 10/26/17 11:29 PMH/Surg Hx/FS Hx/Imm Hx Endocrine/Hematology History: Reports: Other Endocrine/Hematological Disorders - Factor V Leiden Mutation Denies: Hx Diabetes, Hx Systemic Lupus Erythematosus - SJOGRENS SYN, Hx Thyroid Disease Cardiovascular History: Reports: Hx Pacemaker/ICD - [employer], Hx Valvular Heart Disease - mitral valve Denies: Hx Congestive Heart Failure, Hx Hypertension Respiratory History: Reports: Hx Sleep Apnea - r/o evaluation started 11/2012, Other Respiratory Problems/Disorders - SICARDOSIS Denies: Hx Asthma, Hx Chronic Obstructive Pulmonary Disease (COPD) GI History: Denies: Hx Ulcer History: Reports: Hx Kidney Stones, Hx Renal Disease - RENAL TUBULAR ACIDOSIS Denies: Hx Dialysis Musculoskeletal History: Reports: Other Musculoskeletal History - Sjogren's syndrome Denies: Hx Rheumatoid Arthritis Sensory History: Reports: Hx Contacts or Glasses Denies: Hx Hearing Aid Opthamlomology History: Reports: Hx Contacts or Glasses Neurological History: Denies: Hx Headaches Psychiatric History: Denies: Hx Panic Disorder - Cancer History Hx Chemotherapy: No Hx Radiation Therapy: No - Surgical History Surgery Procedure, Year, and Place: URETERAL/MINA surgery, 1980, [facility] [place] LEFT RIB REMOVED PER PT. Exploratory lap, 2001, [facility] [place]. Mitral valve repair, 2003, [facility]-WITH LUIS ANGEL RING MRISAFETY FOR 1.5 ONLY. Right hip replacement, 2014, [facility] [place]. CARDIAC ABLASION 2016. C SECTIONS. LITHROTRIPSY. Open heart surgery. Pacemaker repair Hx Anesthesia Reactions: No Infectious Disease History: No Infectious Disease History: Denies: Hx Hepatitis, Hx Human Immunodeficiency Virus (HIV), Traveled Outside the [place] in Last 30 Days - Family History Known Family History: Positive: Hypertension - Social History Alcohol Use: None Substance Use Type: Reports: None Smoking Status (MU): Never Smoked Tobacco Review of Systems Negative: Fever Positive: Other - Bilateral hip and back pain All Other Systems Reviewed And Are Negative: Yes Physical Exam - Summary Physical Exam Summary: Appearance: The patient is well-nourished in no acute distress and in no acute pain. Skin: The skin is warm and dry and skin color reflects adequate perfusion. HEENT: The head is normocephalic and atraumatic. The pupils are equal and reactive. The conjunctivae are clear and without drainage. Nares are patent and without drainage. Mouth reveals moist mucous membranes and the throat is without erythema and exudate. The external ears are intact. The ear canals are patent and without drainage. The tympanic membranes are intact. Neck: The neck is supple with full range of motion and non-tender. There are no carotid bruits. There is no neck vein distension. Respiratory: Chest is non-tender. Lungs are clear to auscultation and breath sounds are symmetrical and equal. Cardiovascular: Heart is regular rate and rhythm. There is no murmur or rub auscultated. There is no peripheral edema and pulses are symmetrical and equal. Abdomen: The abdomen is soft and non-tender. There are normal bowel sounds heard in all four quadrants and there is no organomegaly palpated. Musculoskeletal: There is no back tenderness noted. Extremities are non-tender with full range of motion. There is good capillary refill. There is no peripheral edema or calf tenderness elicited. Positive straight leg raise at 5 degrees. Tender in the left sciatic area. Neurological: Patient is alert and oriented to person, place and time. The patient has symmetrical motor strength in all four extremities. Cranial nerves are grossly intact. Deep tendon reflexes are symmetrical and equal in all four extremities. Psychiatric: The patient has an appropriate affect and does not exhibit any anxiety or depression. Triage Information Reviewed: Yes Vital Signs On Initial Exam: Initial Vitals Temp Pulse Resp BP Pulse Ox 98.1 F 62 18 144/82 100 09/07/18 15:30 09/07/18 15:30 09/07/18 15:30 09/07/18 15:30 09/07/18 15:30 Vital Signs Reviewed: Yes Diagnostics - Vital Signs Vital Signs Temp Pulse Resp BP Pulse Ox 09/07/18 15:30 98.1 F 62 18 144/82 100 - Laboratory Lab Statement: Any lab studies that have been ordered have been reviewed, and results considered in the medical decision making process. - CT Spine Lumbar CT Interpretation Completed By: Radiologist Summary of CT Findings: Degenerative disc disease with broad-based protrusion is noted at multiple levels most prominent at L4-L5. Overall no significant change is noted since 10/18/16 broad-based protrusion. ED Provider has reviewed this report. Lower Extremity Course/Dx - Course Course Of Treatment: Ms. Salazar came in with significant sciatica. CT scan didn' t show disc protrusion at several levels but worse at L4 5 consistent with her symptoms. In spite of several medications I was unable to get her ambulatory out of the department. She was given Decadron and hopefully by morning she'll be more ambulatory. - Diagnoses Provider Diagnoses: Sciatica - Physician Notifications Discussed Care Of Patient With: Juliane Wells Time Discussed With Above Provider: 19:47 Instructed by Provider To: Admit As Inpatient Discharge - Sign-Out/Discharge Documenting (check all that apply): Patient Departure - Admission Patient Received Moderate/Deep Sedation with Procedure: No - Discharge Plan Condition: Stable Disposition: ADMITTED TO [facility] Referrals: Nemo Cruz MD [Primary Care Provider] - - Billing Disposition and Condition Condition: STABLE Disposition: Admitted to [facility] - Attestation Statements Document Initiated by Kirk: Yes Documenting Scribe: Anish Tan Provider For Whom Kirk is Documenting (Include Credential): Guille Pena MD Scribe Attestation: Anish Marie, scribed for Guille Pena MD on 09/07/18 at 2134. Scribe Documentation Reviewed: Yes Provider Attestation: The documentation as recorded by the [email or web address] accurately reflects the service I personally performed and the decisions made by me, Guille Pena MD Status of Kirk Document: Viewed
[2018-09-07] MEDS ORDERED: LORazepam TAB(*) 1 MG PO ONE (16:27)
[2018-09-07] MEDS ORDERED: Ketorolac INJ* 30 MG/ML 1 ML VIAL IM ONE (16:27)
[2018-09-07] MEDS ORDERED: oxyCODONE/Acetamin 5/325 MG* TAB PO ONE (17:40)
[2018-09-07] MEDS ORDERED: Dexamethasone IV* 4 MG/ML 5 ML VIAL (20 MG) IVPB ONE (19:34)
[2018-09-07] MEDS ORDERED: Al Hydrox/Mg Hydrox/Simet LIQ* 30 ML UDC PO PRN (21:11)
[2018-09-07] MEDS ORDERED: Morphine INJ* 2 MG/ML 1 ML SYRINGE (TWO MG - NEW SYRINGE VERSION) IV PRN (21:11)
[2018-09-07] MEDS ORDERED: Acetaminophen TAB* 325 MG PO PRN (21:11)
[2018-09-07] MEDS ORDERED: Acyclovir* 400 MG TAB PO PRN (21:13)
[2018-09-07 22:12] LABS: INR 3.26 (0.82-1.09)
[2018-09-07] MEDS ORDERED: diPHENhydraMINE IV* 50 MG/ML 1 ml VIAL (BENADRYL) SLOW PUSH ONE (22:19)
--- NOTE | 2018-09-07 22:26 | HP ---
CC: Dr. Cruz * HISTORY AND PHYSICAL: DATE OF ADMISSION: 09/07/18 TIME OF ADMISSION: 9 p.m. PRIMARY CARE PHYSICIAN: Dr. Cruz. CHIEF COMPLAINT: Leg pain. HISTORY OF PRESENT ILLNESS: This is a 68-year-old female with history of AFib and Sjogren disease who presents to the emergency department with hip and back and leg pain for the last 3 weeks that got suddenly worse yesterday. She noticed that 3 weeks ago she had bilateral hip pain that was achy and she attributed to Sjogren disease as she often gets joint aches and pains; however, yesterday when she woke up, she noticed severe pain in her left buttock that radiated down the back of her leg and to the dorsal surface of her foot with warmth on her third and fourth toes. She was able to walk into the ER "barely" and has not had any incontinence, retention, or numbness. In the ED, she had a CT scan that showed degenerative disk disease and a disk protrusion that was unchanged from a 2007 image; however, she was unable to ambulate in the emergency department, so we were asked to evaluate her for admission. At this time, she continues to be in severe pain and feels like she cannot move and is limited entirely by pain, but denies weakness. PAST MEDICAL HISTORY: Atrial flutter/fib with a pacemaker, Sjogren disease, renal tubular acidosis of unknown type, nephrolithiasis, diverticulitis, and factor V Leiden disease. 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 HOME MEDICATIONS: 1. Tylenol 500 q.6 p.r.n. pain. 2. Acyclovir 400 mg daily. 3. KCl 20 mEq b.i.d. 4. Sotalol 80 mg b.i.d. 5. Warfarin 2.5 mg everyday except Sunday, when she takes 5 mg. FAMILY HISTORY: Her mom had osteoarthritis. SOCIAL HISTORY: She is a never smoker. She occasionally has a glass of wine and her healthcare proxy is her , Sukhjinder. REVIEW OF SYSTEMS: She denies any recent illness, chest pain, shortness of breath, headache, recent falls, trauma. The remainder of the 14-point review of systems is negative except as per the HPI. PHYSICAL EXAMINATION GENERAL: Alert, well-appearing female, in no distress, appears younger than her stated age. VITAL SIGNS: Temperature 98.1, heart rate 62, respiratory rate 18, pulse ox 100 % on room air, blood pressure 144/82. HEENT: Pupils equal, round, and reactive to light. Oral mucosa is moist. Extraocular movements are intact. No nystagmus. NECK: No JVP. No adenopathy. Thyroid is nonpalpable. CHEST: Regular rate and rhythm. No murmurs. Pacer is palpated over the left chest wall. Her lungs are clear bilaterally anteriorly, but she is unable to sit upright. ABDOMEN: Soft, nontender, nondistended. No guarding or rebound. EXTREMITIES: No edema, rashes, or ulcers. NEUROLOGIC: She has a positive straight leg raise test on the left at approximately 30 degrees. She has no point tenderness over her lumbar spine. Her deep tendon reflexes are 2+ bilaterally in her lower extremities. Her sensation is intact bilaterally. Her left hip strength is limited by pain, but she is able to lift the leg off the bed and she is unable to ambulate at this time. IMAGING: A lumbar spine CT shows degenerative disk disease with broad-based protrusion noted at multiple levels, most prominent at L4-L5. Overall, no significant changes noted since 10/18/16 broad-based protrusion. ASSESSMENT AND PLAN: This is a 68-year-old woman with history of atrial fibrillation and flutter and Sjogren's who presents to the emergency department with worsening left lower extremity pain for 3 weeks and has intractable pain and inability to ambulate in the emergency department. 1. L4-5 disk herniation with intractable pain. She has received Decadron and oxycodone in the ED without effect. I will add morphine and Solu-Medrol. Ultimately, she needs an MRI, and if she does not improve by the morning with analgesia and if still not able to ambulate, I would recommend an MRI in the morning. I will order PT and we will continue supportive care. 2. Atrial fibrillation/flutter. She is in normal sinus rhythm currently. I do not have access to her most recent INR. We will check one now to rule out concern for a bleeding or clotting explanation for her pain. 3. Sjogren disease. She does not take any home medications for this. 4. Factor V Leiden, check INR now and continue warfarin. 5. DVT prophylaxis. Contraindicated in the setting of therapeutic anticoagulation. 6. Disposition. Admit to OBV with a possible MRI in the morning and a PT consult. [id number]/[facility] #: [id number] GERARDO
[2018-09-08] MEDS: oxyCODONE TAB* 5 MG TAB PO PRN ×3 (01:50→14:20)
[2018-09-08] MEDS: methylPREDNISolone SOD 40 MG* 1 ML VIAL IV SCH ×2 (05:41→13:59)
[2018-09-08] MEDS ORDERED: Potassium Citrate (NF) 10 MEQ TAB PO SCH (09:00)
[2018-09-08] MEDS ORDERED: Sotalol TAB* 80 MG PO SCH ×2 (09:00→21:00)
[2018-09-08 12:43] VITALS: BP 106/54
[2018-09-08 13:22] LABS: ABS Lymphocytes 0.3 10^3/ul (1.0-4.8); ABS Neutrophils 5.5 10^3/ul (1.5-7.7); Hematocrit 39 % (35-47); Hemoglobin 12.6 g/dL (12.0-16.0); Lymphocyte % 4.7 %; Mean Corpuscular HGB Conc 33 g/dL (31-36); Mean Corpuscular Hemoglobin 30 pg (27-31); Mean Corpuscular Volume 91 fL (80-97); Mean Platelet Volume 8.4 fL (7.4-10.4); Platelet Count 163 10^3/uL (150-450); Red Blood Count 4.28 10^6 /uL (3.70-4.87); Red Cell Distribution Width 14 % (10-15); White Blood Count 5.8 10^3/uL (3.5-10.8)
--- NOTE | 2018-09-08 13:22 | DS ---
CC: Dr. Cruz; Dr. Dumont * DISCHARGE SUMMARY: DATE OF ADMISSION: 08/30/18 DATE OF DISCHARGE: 09/08/18 PRIMARY CARE PROVIDER: Dr. Cruz. DISCHARGE DIAGNOSIS: Sciatica pain in patient with degenerative disk disease at level L4-L5. SECONDARY DIAGNOSES: 1. History of Sjogren's. 2. Status post pacemaker placement. 3. History of paroxysmal atrial flutter. 4. History of factor V Leiden disease. 5. History of mitral valve repair. 6. Status post right total hip replacement. MEDICATIONS AT DISCHARGE: Includes: 1. Acetaminophen 500 mg every 6 hours p.r.n. 2. Zovirax 400 mg daily. 3. Potassium citrate 20 mEq b.i.d. 4. Sotalol 40 mg b.i.d. 5. Coumadin 2.5 mg daily. The patient is instructed to hold the Coumadin for 1 day and then restart it at the same dose. Follow up with INR on 09/09/18 through 09/10/18. 6. Omeprazole 20 mg daily. 7. Oxycodone 5 mg every 4 hours p.r.n. The patient was dispensed a prescription for 30 tablets. I-STOP was checked and the patient has not had any controlled substances prescribed in the past 6 months. 8. Prednisone taper 40 mg daily for 2 days, then 20 mg daily for 2 days, then 10 mg daily for 2 days and stop. DIAGNOSTIC STUDIES/LAB DATA: Laboratory datais pending at the time of dictation , apart from INR that is supratherapeutic at 3.26. CT of lumbar spine obtained at admission on 09/07/18, impression: " Degenerative disk disease with broad-based protrusion is noted at multiple levels, most prominent at L4-L5. Overall, no significant change is noted since 10/18/16 broad- based protrusion." DISCHARGE INSTRUCTIONS: In addition, the patient is recommended to follow up with Dr. Cruz in approximately 4 to 7 days and to call Dr. Dumont' office from neurosurgery and schedule a followup in approximately 1 to 2 weeks. CONDITION ON DISCHARGE: Stable. DISPOSITION AT DISCHARGE: Home. PHYSICAL EXAM AT THE TIME OF DISCHARGE: Blood pressure 117/62, heart rate of 60 and regular, respiratory rate of 15, oxygen saturation 91% on room air, and temperature 98.3. General: The patient is a pleasant 68-year-old female who is in no acute distress. Alert, awake and oriented x3. HEENT: Head: Atraumatic, normocephalic. Eyes: Pupils are equal and reactive to light and accommodation. Oropharynx is clear. Mucosa moist. Neck: Supple. No JVD. No bruits bilaterally. Cardiovascular: Regular rate and rhythm, no murmur. Respiratory: Clear to auscultation bilaterally. Abdomen: Soft, nontender. Bowel sounds are present in all 4 quadrants. Extremities: There is no edema. Pulses are +2 bilaterally. No clubbing or cyanosis. Neuro Evaluation: The patient has decreased sensation in second and third toes on the left foot. She also has an area of decreased sensation on the left lateral thigh, which she reports as chronic. Otherwise, neurologically, the patient has decreased plantar flexion in the left foot at approximately 4+/5 and on straight leg raise , there was decreased motor strength also at 4+/5. She ambulates with a steady gait with a roller walker. Otherwise, cranial nerves II through XII are grossly intact. Motor strength in bilateral upper extremities is 5/5. Psychiatric Evaluation: The patient is alert and oriented x3 with no evidence of anxiety or depression. HOSPITAL ADMISSION COURSE: Alicia Salazar is a 68-year-old female with history of Sjogren's and atrial fibrillation, status post pacemaker placement, who is on Coumadin, who stated for the past 3 weeks she has had problems with left sciatica pain radiating from the left flank to the left buttock. The pain has gotten so severe that she was unable to walk when she was admitted to the hospital for observation on 09/07/18. She was noted to have broad-based disk protrusion at L4- L5 on the CT. Unfortunately, we were unable to do MRI due to the weekend. She was given OxyContin and Solu-Medrol throughout the hospital stay and by the time of discharge, she was able to ambulate freely with a roller walker. Physical therapy evaluation deemed the patient safe to go home and the patient also requested to go home. Unfortunately, she has not had any laboratory values, apart from her INR obtained during the hospital stay and I recommended for the patient to have a CBC and basic metabolic panel drawn. At this point, the patient agrees to have that those and values drawn, but she is not going to wait for the results and she is going to follow up with Dr. Cruz in regards to those lab work results. On physical exam and evaluation, she was noted to have numbness on the left second and third toes. She also has chronic problems with numbness in the left lateral thigh. The numbness in the toes has been going on for several days. She also has some mild left leg weakness. Due to that and due to noted disk protrusion on the lumbar spine CT, the patient was recommended to follow up with Dr. Dumont from neurosurgery for further evaluation. She was also recommended to have an outpatient MRI done. She has apparently an MRI safe pacemaker. For home, she is going to be prescribed a short taper of prednisone as well as several tablets of oxycodone. I will place her on PPI for GI prophylaxis. This patient is also on Coumadin. Her INR is slightly supratherapeutic today and she is recommended to hold her Coumadin for 1 day and restart it at 2.5 mg dose. She also is recommended to follow up with INRs as previously. Please note that this is a short summary of the patient's hospitalization. Please refer to further medical records for details. TIME SPENT: Approximately 40 minutes were spent in the preparation of the patient's discharge. [id number]/[facility] #: [id number] GERARDO
[2018-09-08 13:38] LABS: BUN/Creatinine Ratio 25.7 (8-20); C Reactive Protein 9.76 mg/L (<8.01); Calcium 9.3 mg/dL (8.6-10.3); EGFR African American 60.6 (>60); EGFR Non-African American 50.1 (>60); Potassium 4.2 mmol/L (3.5-5.0)
[2018-09-08] MEDS ORDERED: Warfarin TAB(*) 2.5 MG PO SCH (17:00)
[2018-09-10] MEDS ORDERED: Warfarin TAB(*) 5 MG PO SCH (17:00)
== END 2018-09-08 14:25 | disposition home or self-care (01) ==
LOC: ED 15:27 → SSU 21:11
PROVIDERS: ADMIT Internal Medicine; ATTEND Internal Medicine
DX: M54.32 Sciatica, left side (principal); M51.16 Intervertebral disc disorders with radiculopathy, lumbar region; R20.8 Other disturbances of skin sensation; M35.00 Sjogren syndrome, unspecified; Z95.0 Presence of cardiac pacemaker; I48.92 Unspecified atrial flutter; D68.51 Activated protein C resistance; N25.89 Other disorders resulting from impaired renal tubular function; Z96.641 Presence of right artificial hip joint; Z79.01 Long term (current) use of anticoagulants; Z79.899 Other long term (current) drug therapy; Z88.8 Allergy status to other drugs, medicaments and biological substances; Z88.1 Allergy status to other antibiotic agents; Z88.2 Allergy status to sulfonamides; D86.9 Sarcoidosis, unspecified; G47.30 Sleep apnea, unspecified
CPT/HCPCS: 36415; 72131; 80048; 85025; 85610; 86140; 96372; 96374; 96375; 99284; A9270-GY; G0378; G8978-GP-CJ; G8979-GP-CH; J1100; J1200; J1885; J2270; J2920

== ENCOUNTER → 2019-02-05 06:55 | Day surgery (SDC) | payer MEDICARE, OTHER ==
--- NOTE | 2019-01-28 14:50 | HP ---
CC: Dr. Nemo Cruz; Dr. Cecilia Rutledge * PREOPERATIVE HISTORY AND PHYSICAL: DATE OF ADMISSION/SURGERY: 02/05/19 This patient is scheduled for same-day surgery admission by Dr. Carreno on Sunday , 02/05/19. DATE OF PREOPERATIVE HISTORY AND PHYSICAL EXAMINATION: 01/27/19. ATTENDING SURGEON: Dr. Alisia Carreno * (dictated by Katty Loza NP). CHIEF COMPLAINT: Left breast cancer. HISTORY OF PRESENT ILLNESS: The patient is a 68-year-old female with a history of atrial fibrillation and flutter, mitral valve repair, pacemaker implantation , who presents with a newly diagnosed left breast invasive ductal adenocarcinoma that was diagnosed on routine screening mammogram at the end of December 2018. She states that she has never identified a breast lump in that breast and has no breast complaints. She denies erythema, tenderness, skin dimpling or nipple discharge. She has never had any radiation to her chest. There are no first-degree relatives with breast cancer in her family. She was on oral contraceptives many years ago. She was 13 at menses and 29 at her first live and she did breastfeed. She was [address] Carreno has reviewed the pathology with Dr. Tapia and reviewed the findings with the patient and has discussed the surgical options and the patient has opted for left breast needle localization lumpectomy and sentinel lymph node biopsy as a same-day surgery procedure with intravenous sedation. Dr. Carreno described the nature of the surgical procedure, the relevant risks and benefits and alternatives and today I reviewed the typical postoperative care and recovery. The patient has had a chance to ask questions and stated that she understands the information and is satisfied with the answers given to her questions. She will sign surgical consent on the day of surgery. PAST MEDICAL HISTORY: Mitral valve prolapse, status post mitral valve repair in 2003 at [facility] with a #32 Cara ring; atrial fibrillation/ flutter, well controlled on sotalol; factor V Leiden evaluated by Dr. Jaramillo; Sjogren's; congenital nonrotation midgut; nephrolithiasis; Raynaud's disease; left sciatica and left foot drop; spinal stenosis; hypothyroidism due to amiodarone; cardiac pacemaker in situ due to sick sinus syndrome. 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 MEDICATIONS: 1. Eliquis 5 mg p.o. b.i.d. and she will take the last dose on Sunday morning, 02/02/19 in preparation for surgery. 2. Potassium citrate ER 10 mEq 2 tablets p.o. b.i.d. 3. Sotalol 80 mg 1 tablet p.o. b.i.d. 4. Acetaminophen 500 mg 2 tablets every 6 hours as needed for pain. 5. She is wearing a foot orthotic for left foot drop. ALLERGIES: SULFA ANTIBIOTICS caused rash on hands and feet and fever, CEPHALOSPORIN causes hives, AMIODARONE caused hypothyroidism, WELLBUTRIN caused hives, MORPHINE INTRAVENOUS caused red streaking on her upper extremity. FAMILY HISTORY: Father with a history of bladder cancer and coronary artery disease. Mother with a history of colon cancer. No known anesthesia complications, bleeding tendencies, or clotting disorders. 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 REVIEW OF SYSTEMS: Constitutional: No fevers, chills, excessive fatigue, or weight loss. General: No history of deep vein thrombosis or pulmonary embolism. No previous anesthesia complications, but she states that after her mitral valve repair, her temperature plummeted in the recovery room. No unusual bleeding tendencies while on Eliquis. Endocrine: No diabetes. She was diagnosed with hypothyroidism while on amiodarone. Breasts: As described in history of present illness. Respiratory: No dyspnea on exertion. No chronic cough. Cardiovascular: No anginal chest pain or palpitations. She is followed by Dr. Rutledge from Cardiology and has been cleared to proceed with surgery. She has a very low amount of breakthrough atrial fibrillation or flutter and will be safe to come off her Eliquis 2 to 3 days prior to her surgery and resume afterwards once felt safe by Dr. Carreno; Dr. Rutledge recommended continuing the sotalol perioperatively to decrease the chance of periprocedural atrial fibrillation. For the patient's mitral valve repair, she shows good function, but with a stiff heart, she will be at risk for congestive heart failure if she has rapid volume infusions. For the patient's pacemaker, she atrially paces, but is not pacemaker dependent. Pacemaker instructions will be provided on the preoperative surgical form. Gastrointestinal: No nausea , vomiting, diarrhea GI bleeding, constipation, or change in bowel habits. Genitourinary: No dysuria. Musculoskeletal: Sciatica with chronic left-sided discomfort and left foot-drop and she wears an orthotic, but her gait is unsteady and she has had several fall events. She has been diagnosed with spinal stenosis. Integumentary: No chronic rashes or skin changes. Neurologic : No headache or blurred vision. Psychiatric: No reported anxiety, depression , or insomnia. PHYSICAL EXAMINATION GENERAL SURVEY: The patient is a 68-year-old female, well developed, well nourished, in no acute distress. VITAL SIGNS: Height 63 inches, weight 160 pounds, body mass index 28.3. Blood pressure 118/78, pulse 60 and regular, respiratory rate 16, temp 97.1 tympanic. HEENT: Benign. NECK: Supple. No carotid bruits. No cervical lymphadenopathy. LUNGS: Breath sounds bilaterally clear and equal. BREASTS: Right breast, normal contours. No nodules, masses, tenderness, or nipple discharge. Left breast, normal contour. No nodules, masses, or tenderness. Left lateral breast biopsy site well healed, no infection, no nipple discharge. Axillae, no palpable lymphadenopathy. HEART: Regular rate and rhythm. No murmurs or rubs appreciated. ABDOMEN: Active bowel sounds. Soft, nondistended, nontender throughout. No obvious masses or organomegaly. PELVIC: Exam deferred. RECTAL: Exam deferred. EXTREMITIES: Warm and well perfused and free of edema. Brace on left leg related to left footdrop. NEUROLOGIC: Alert and oriented x3. Gait is somewhat unsteady due to left footdrop. PSYCHIATRIC: Pleasant and cooperative. SKIN: Warm, dry, intact. IMPRESSION: Left breast cancer. PLAN: Same-day surgery admission to Dr. Carreno's service on 02/05/19, for left breast needle localization lumpectomy, and sentinel lymph node biopsy. The patient will take her last dose of Eliquis on Sunday morning, 02/02/19. ADI LOZA, SUPERVISOR [employer]PING [id number]/[facility] #: [id number] GERARDO
[~2019-02-05 06:55] MED LIST: Buffered Lidocaine 1% SYRIN* 1 ML/SYRINGE INTRADERM ONE; Bupivacaine 0.5%* 50 ML MDV VIAL ONE; Clindamycin 900 MG/D5W BAG(*) 900 MG/50 ML BAG IVPB ONE; DiMENhydriNATE IV* 50 MG/ML VIAL IV PUSH PRN; Famotidine IV* 10 MG/ML 2 ML (20 mg) IV ONE; Famotidine IV* 10 MG/ML 2 ML (20 mg) ONE; Heparin VIAL(*) 5000 UNITS/ML VIAL (FIVE THOUSAND) ONE; KETAMINE HCL* 50 MG/ML 10 ML VIAL ONE; Lactated Ringers 1000 ML Bag* 1,000 ML IV SCH; Lidocaine 1% INJ* 10 MG/ML 30 ML SDV ONE; Lidocaine 2% PF * 5 ML VIAL ONE; Lidocaine 2.5%/Prilocain 2.5%* 5 GM TUBE ONE; Naloxone* 0.4 MG/ML 1 ML VIAL IV PRN; Ondansetron INJ* 2 MG/ML VIAL ONE; Phenylephrine 10 MG/ML VIAL* 1 ML VIAL ONE; Propofol* 10 MG/ML 20 ML BTL ONE; fentaNYL* 50 MCG/ML 2 ML VIAL (100 MCG VIAL) IV PRN; fentaNYL* 50 MCG/ML 2 ML VIAL (100 MCG VIAL) ONE; oxyCODONE/Acetamin 5/325 MG* TAB ONE
[2019-02-05 20:37] VITALS: BP 124/60
--- NOTE | 2019-02-06 04:13 | OP ---
CC: Dr. Ellen Jaramillo; Dr. Nemo Cruz.* DATE OF OPERATION: 02/05/19 - [facility] DATE OF : 52 SERVICE: General surgery. ATTENDING SURGEON: Alisia Carreno MD PROPERTY CARETAKER: Neelam Santacruz MD ANESTHESIOLOGIST: Dr. Michael Egan. ANESTHESIA: LMA. PRE-OP DIAGNOSIS: Left breast invasive ductal adenocarcinoma. POST-OP DIAGNOSIS: Left breast invasive ductal adenocarcinoma. OPERATIVE PROCEDURE: Left breast needle-localized lumpectomy and sentinel lymph node biopsy. ESTIMATED BLOOD LOSS: Minimal, less than 20 cc. SPECIMENS: Left breast lump and sentinel lymph nodes #1 and 2. INDICATIONS FOR SURGERY: Ms. Salazar is a very pleasant 68-year-old female who is found to have a mammographic abnormality on a routine annual mammogram. She underwent a core biopsy which confirmed a grade 1 invasive ductal adenocarcinoma. For this reason she wished to undergo a breast conserving therapy with needle localization of her lesion and a sentinel lymph node biopsy. She understood the risks, alternatives, and the benefits and she wished to proceed. DESCRIPTION OF PROCEDURE: The patient was brought back to the operating room and placed on the operating room table in a supine position. Sequential compression devices were placed in the bilateral lower extremities for DVT prophylaxis. Antibiotics were administered, an LMA was placed, and the patient' s left arm was extended. A small bump was placed below her shoulder to further expose the axilla and care was taken to ensure that her arm was not adducted beyond 90 degrees. Her left breast was then prepped and draped in a normal sterile fashion. The wire that was coming from the 9 o'clock position on her upper outer breast was then cut down to approximately 1 inch outside of her skin. Next, the left breast was then prepped and draped is a normal sterile fashion. A time-out has been performed verifying the patient's name and date of and the procedure to be performed. Next, an incision was made surrounding the wire and the skin was divided down to the subcutaneous tissue. A cone of breast tissue was divided surrounding the wire and the breast lump was then removed. It was marked as follows: A short suture was at the superior pole, the medial suture was at the medial aspect of the mass, and the lateral suture was at the lateral aspect of the mass. The specimen was then taken to mammography where it was confirmed that the abnormality, the clip and the wire were all within the specimen. After this , the breast cavity was irrigated and hemostasis was obtained. Attention was then turned towards performing the sentinel lymph node biopsy. On lymphoscintigraphy, there was 1 lymph node that had been identified and the gamma probe was used at the skin to identify the area of maximum counts and an incision was made in the axilla. The skin was divided down to the subcutaneous tissue and then the axillary fat pad was entered and lifted up and out of the axilla using Allis clamps. Two sentinel lymph nodes were then dissected out. The first sentinel lymph node had an in situ count of 428, an ex-vivo count of 492. The sentinel lymph node #2 had an in situ count of 1566 and ex- vivo count of 1677. After removal of these 2 lymph nodes axillary bed count was 2. At this point, sentinel lymph node biopsy was concluded. The axillary cavity was irrigated and hemostasis was obtained and then attention was turned towards closure. The subdermal layer of both the breast and the axillary cavities were closed using interrupted 3-0 Vicryl sutures and the skin was closed using running 4- 0 Monocryl sutures. Sterile-dressing was then placed, the patient's anesthesia was reversed and she was taken to the PACU in stable condition. At the end of the case all counts were correct and I was present during the entirety of the case. [id number]/[facility] #: [id number] [facility]ERElliot
== END | disposition home or self-care (01) ==
LOC: OR 06:55
PROVIDERS: ATTEND Surgery
DX: C50.912 Malignant neoplasm of unspecified site of left female breast (principal); I34.1 Nonrheumatic mitral (valve) prolapse; I48.91 Unspecified atrial fibrillation; Z79.01 Long term (current) use of anticoagulants; D68.51 Activated protein C resistance; E03.8 Other specified hypothyroidism; Z95.0 Presence of cardiac pacemaker; I73.00 Raynaud's syndrome without gangrene
CPT/HCPCS: 78195; 88305; 88307; 88342; A9270-GY; A9541; J1644; J2405; J2704; J3010; J3490